=== PATIENT | male | born 1945 | race Hispanic/Latino ===

== ENCOUNTER 2018-04-16 10:28 | Emergency (ER) | payer BC, MEDICARE ==
[~2018-04-16] VITALS: Ht 167.6 cm; Wt 74.8 kg
[~2018-04-16 10:28] MED LIST: KEFLEX500 MG PO; UNKNOWN MEDS; Z.0.AVODART0.5 MG PO; Z.0.LEVOTHROID75 MCG PO; Z.0.LISINOPRIL10 MG; Z.0.RAPAFLO8 MG PO
--- OUTSIDE RECORDS SUMMARY | 2018-04-16 10:34 | XMS REPORT | Clinical Summary ---
Author Author RAUL [facility] Address Unknown Phone Unavailable Care Team Providers Care Daylight Driller Name Role Phone Jose Alfredo Zuniga PCP Allergies Comments Active Allergy Reactions Severity Noted Date seizures Ertapenem Other (See 03/20/2014 Comments) Medications End Date Status Medication Sig Dispensed Refills Start Date Active dutasteride (AVODART) 0.5 Take 0.5 mg 0 mg capsuleIndications: by mouth ESRD (end stage renal daily. disease) ([facility]) Active levothyroxine (SYNTHROID, Take 100 mcg 0 LEVOTHROID) 100 MCG by mouth tabletIndications: ESRD daily. (end stage renal disease) ([facility]) Active metaxalone (SKELAXIN) 800 Take 800 mg 0 MG tabletIndications: by mouth ESRD (end stage renal daily Before disease) ([facility]) dialysis . Active metoprolol (LOPRESSOR) 25 Take 25 mg by 0 MG tabletIndications: mouth 2 (two) ESRD (end stage renal times daily. disease) ([facility]) Active silodosin 8 mg Take 8 mg by 0 CapIndications: ESRD (end mouth daily. stage renal disease) ([facility]) Active cholecalciferol, vitamin Take 2,000 0 D3, 2,000 unit Units by CapIndications: ESRD (end mouth daily. stage renal disease) ([facility]) Active warfarin (COUMADIN) 3 MG Take 3 mg by 0 tabletIndications: ESRD mouth daily. (end stage renal disease) ([facility]) Active Problems Patient Care Coordination Note Dr. Cornell Capellan, Urology, Problem Noted Date ESRD (end stage renal disease) 02/26/2014 Social History Date Tobacco Use Types Packs/Day Years Used Never Smoker Alcohol Use Drinks/Week oz/Week Comments No Sex Assigned at Date Recorded Not on file Industry Job Start Date Occupation Not on file Not on file Not on file Travel End Travel History Travel Start No recent travel history available. Last Filed Vital Signs Not on file Plan of Treatment Health Maintenance Due Date Last Done Comments INFLUENZA VACCINE 01/29/2018 Results Not on fileafter 04/15/2017 Insurance Payer Benefit Subscriber ID Type Phone Address Plan / Group BLUE CROSS/BLUE SHIELD BCBS PPO xxxxxxxxxxxx PPO [phone] [address] [place] [address] CHOICE MEDICARE MEDICARE A xxxxxxxxxx Medicare B Advance Directives For more information, please contact: [facility] [address] [place] [address] Date Inactivated Comments Code Status Date Activated 02/26/2014 5:55 PM Full Code 02/26/2014 7:06 AM This code status was determined by: Patient
--- OUTSIDE RECORDS SUMMARY | 2018-04-16 10:34 | XMS REPORT | Summary of Care ---
Author Author [facility] Organization [facility] Address Unknown Phone Unavailable Encounter HQ Panchor_piero(FIN) [id number] Date(s): 06/29/17 - 06/29/17 [facility] [address] [place] [address]- [phone] Discharge Disposition: Home or Self Care Attending Physician: Lucía Nj MD Referring Physician: Lucía Nj MD Vital Signs No data available for this section Problem List No data available for this section Allergies, Adverse Reactions, Alerts Substance Reaction Severity Status NKDA Active Medications No data available for this section Results No data available for this section Immunizations No data available for this section Procedures Procedure Date Related Diagnosis Body Site Status Arteriovenous fistulization Completed Social History Social History Type Response Smoking Status Never smoker; Exposure to Tobacco Smoke None; Cigarette Smoking Last 365 Days No; Reg Smoking Cessation Counseling No entered on: 05/31/17 Assessment and Plan No data available for this section
--- OUTSIDE RECORDS SUMMARY | 2018-04-16 10:34 | XMS REPORT | Summary of Care ---
Author Author [facility] Organization [facility] Address Unknown Phone Unavailable Encounter HQ Suyapa(NORMA) [id number] Date(s): 05/31/17 - 05/31/17 [facility] [address] [place] [address]- Encounter Diagnosis Urinary tract infection, site not specified (Final) - 06/07/17 Hypertensive chronic kidney disease with stage 5 chronic kidney disease or end s tage renal disease (Final) - End stage renal disease (Final) - Dependence on renal dialysis (Final) - Hypothyroidism, unspecified (Final) - Thrombosis due to vascular prosthetic devices, implants and grafts, initial enco unter (Final) - Acute embolism and thrombosis of right internal jugular vein (Final) - Discharge Disposition: Home or Self Care Attending Physician: Lucía Nj MD Referring Physician: Lucía Nj MD Vital Signs Most recent to 1 oldest [Reference Range]: Height 167.64 cm (05/31/17 1:46 PM) Weight 75 kg (05/31/17 1:46 PM) Body Mass Index 26.69 m2 (05/31/17 1:46 PM) Problem List No data available for this section Allergies, Adverse Reactions, Alerts Substance Reaction Severity Status NKDA Active Medications levothyroxine 112 mcg (0.112 mg) oral tablet 112 microgram=1 tab, PO, Daily, # 30 tab, 0 Refill(s) Start Date: 05/31/17 Status: Ordered nitrofurantoin macrocrystals 50 mg oral capsule (Macrodantin) 50 mg=1 cap, PO, QID, # 28 cap, 0 Refill(s) Start Date: 05/31/17 Stop Date: 06/07/17 Status: Ordered Results No data available for this section Immunizations No data available for this section Procedures Procedure Date Related Diagnosis Body Site Status Arteriovenous fistulization Completed Social History Social History Type Response Smoking Status Never smoker; Exposure to Tobacco Smoke None; Cigarette Smoking Last 365 Days No; Reg Smoking Cessation Counseling No entered on: 05/31/17 Assessment and Plan Extracted from: Title: IR Tunneled Central Line Author: Aman Lujan MD Date: 05/31/17 PROCEDURE REQUESTED: Tunneled central line placement REQUESTING PHYSICIAN: Maryanne Nj MD (Infectious Diseases) HISTORY/INDICATIONS: Chronic urinay tract infection, intermediate term central venous access needed for IV antibiotics. Patient is not a PICC candidate to to end-stage kidney disease on hemodialysis and necessity for peripheral venous preservation. MEDICAL: Hypertension, hypothyroidism, benign prostatic hypertrophy PROCEDURAL HISTORY: Left arm dialysis fistula, right jugular dialysis permcath MEDICATIONS: Nitrofurantoin, levothyroxine ALLERGIES: No known drug allergies PHYSICAL FINDINGS: BP 160/95 P 65 R 22 Alert, oriented, no acute distress SaO2 98% ETCO2 30 Regular rythym IMPRESSION: Chronic urinary tract infection, intermediate term central venous access needed for IV antibiotics. PLAN: Tunneled central line placement with US/fluoroscopy. Discussed procedure and risk with patient and family member. Plan on right side internal jugular access, but may need to go to left internal jugular if right side no longer open due to previous permcath access. Risk of fistula comprimise was discussed, but should be low with jugular access and small catheter size. ASA: III
--- OUTSIDE RECORDS SUMMARY | 2018-04-16 10:34 | XMS REPORT | Continuity of Care Document ---
Author Author [facility] Address Unknown Phone Unavailable Problems Problem Status Onset Date Classification Date Reported Comments Source N39.0 Active 06/28/2017 [facility] Urinary tract infection, site not specified 06/08/2017 09/06/2017 [facility] Hypertensive chronic kidney disease with stage 5 chronic kidney disease or end stage renal disease 09/06/2017 [facility] End stage renal disease 09/06/2017 [facility] Dependence on renal dialysis 09/06/2017 [facility] Hypothyroidism, unspecified 09/06/2017 [facility] Thrombosis due to vascular prosthetic devices, implants and grafts, initial encounter 09/06/2017 [facility] Acute embolism and thrombosis of right internal jugular vein 09/06/2017 [facility] URINARY TRACT INFECTION, SITE NOT SPECIF Active [facility] Medications Medication Details Route Status Patient Instructions Ordering Provider Order Date Source levothyroxine 112 mcg (0.112 mg) oral tablet 112 microgram=1 tab, PO, Daily, # 30 tab, 0 Refill(s) Active 05/31/2017 [facility] nitrofurantoin macrocrystals 50 mg oral capsule (Macrodantin) 50 mg=1 cap, PO, QID, # 28 cap, 0 Refill(s) Active 05/31/2017 [facility] Allergies, Adverse Reactions, Alerts Substance Category Reaction Severity Reaction type Status Date Reported Comments Source Immunizations Immunization Date Given Site Status Last Updated Comments Source Results Order Name Results Value Reference Range Date Interpretation Comments Source CVC insert tunnel w/-w/o port/pump age 5+ yrs VR CVC insert tunnel w/-w/o port/pump age 5+ yrs VR TUNNELED CENTRAL LINE PLACEMENT: HISTORY: Chronic urinary tract infection, intermediate term central venous access needed for IV antibiotic therapy. The patient is not a PICC candidate due to renal disease. PROCEDURE: Preliminary ultrasound of the right internal jugular vein showed it to be occluded related to previous dialysis PermCath access. Preliminary ultrasound of the left internal jugular vein showed it to be patent and compressible. Using sterile maximum barrier Seldinger technique, local anesthetic and ultrasound guidance, the left internal jugular vein above the clavicle was then accessed with a micropuncture set. A 0.035 J-wire was then placed into the superior cava. A subcutaneous tunnel was then created from right subclavicular region to the access site, through which a 6-Arabic Bard dual-lumen catheter was pulled through and its retention cuff placed into the proximal tract. The catheter was then trimmed to an appropriate length using the sizing wire. The micropuncture sheath was then exchanged for a peel-away sheath through which the tunneled catheter was placed, following which the sheath was removed. The catheter was then positioned with its tip at the cavoatrial junction. The ports were then aspirated with good blood return, flushed and capped. A 2-0 nylon [id number] pursestring suture was placed around the catheter exit site. The access site in the neck was closed with Dermabond. The catheter hub was then fastened to the skin with a StatLock device. The patient tolerated the procedure well without immediate complications, and was discharged from [facility] Procedures in stable condition. Spot images of the ultrasound and fluoroscopic guidance were done. The fluoroscopic time was 1.3 minutes (37 mGycm). [id number] 05/31/2017 - - Read by: Aman Lujan MD Dictated Date/time: 05/31/17 16:11 Electronically Signed by: Aman Lujan MD 05/31/17 16:19 FINAL REPORT [facility] Vital Signs Vital Sign Value Date Comments Source Height 167.64 cm 05/31/2017 [facility] BMI Calculated 26.69 05/31/2017 [facility] Weight 75 05/31/2017 [facility] Encounters Location Location Details Encounter Type Encounter Number Reason For Visit Attending Provider ADM Date DC Date Status Source [facility] Outpatient [id number] Lucía Moyerbib 05/31/2017 06/01/[address] [facility] Outpatient [id number] her Moyerbib 06/29/2017 06/30/2017 [facility] Procedures Procedure Code Date Perfomer Comments Source Arteriovenous fistulization [id number] [facility]
[2018-04-16] MEDS ORDERED: MORPHINE SULFATE INJ 4 MG/ML INJ IV PRN (11:15)
[2018-04-16 11:21] LABS: BASOPHILS % 0.2 % (0.0-1.0); EOSINOPHILS # (AUTO) 0.2 (0.0-0.4); EOSINOPHILS % 1.2 % (0.0-6.0); HEMATOCRIT 34.6 % (38.2-49.6); HEMOGLOBIN 11.7 g/dL (14.0-18.0); LYMPHOCYTES # (AUTO) 1.5 (1.0-3.2); LYMPHOCYTES % 9.1 % (18.0-39.1); MEAN CORPUSCULAR HGB CONC 33.8 g/dL (31-35); MEAN CORPUSCULAR VOLUME 91.5 fL (81-99); MONOCYTES # (AUTO) 1.5 (0.2-0.8); MONOCYTES % 9.2 % (4.4-11.3); NEUTROPHILS # (AUTO) 12.9 (2.1-6.9); NEUTROPHILS % 79.7 % (38.7-80.0); PLATELET COUNT 332 x10e3/uL (140-360); RED BLOOD COUNT 3.78 x10e6/uL (4.3-5.7); RED CELL DISTRIBUTION WIDTH 13.2 % (11.7-14.4)
[2018-04-16 11:28] LABS: CLARITY,URINE CLOUDY (CLEAR); COLOR,URINE YELLOW (YELLOW); KETONES,URINE NEGATIVE (NEGATIVE); LEUKOCYTE ESTERASE ,URINE 2+ (NEGATIVE); NITRITE,URINE NEGATIVE (NEGATIVE); PROTEIN,URINE DIPSTICK 1+ (NEGATIVE); URINE UROBILINOGEN 0.2 mg/dL (0.2 - 1)
[2018-04-16 11:29] LABS: BILIRUBIN,URINE NEGATIVE (NEGATIVE)
[2018-04-16 11:40] LABS: BACTERIA,URINE MODERATE /HPF; EPITHELIAL CELLS,URINE FEW /LPF; MUCUS,URINE FEW (RARE)
[2018-04-16 11:44] LABS: ALBUMIN 3.2 g/dL (3.5-5.0); ALBUMIN/GLOBULIN RATIO 0.7 (0.8-2.0); ANION GAP 18.8 mmol/L (8-16); CALCIUM 9.4 mg/dL (8.4-10.2); CREATININE, SERUM 6.19 mg/dL (0.72-1.25); POTASSIUM 3.8 mmol/L (3.5-5.1)
[2018-04-16] MEDS ORDERED: CEFTRIAXONE SOD 1 GM VIAL IV ONE (11:45)
[2018-04-16] MEDS ORDERED: CEFTRIAXONE SOD 1 GM/NS 50 ML 50 ML IV ONE (11:45)
[2018-04-16] MEDS ORDERED: AZITHROMYCIN 250 MG TAB PO ONE (13:30)
[2018-04-16] MEDS ORDERED: METRONIDAZOLE 500 MG TAB PO ONE (13:30)
--- NOTE | 2018-04-16 13:45 | Diagnostic Imaging Report ---
EXAM: Testicular Ultrasound DATE: 04/16/2018 12:00 AM INDICATION: Right testicular pain/swelling COMPARISON: None FINDINGS: Routine testicular ultrasound was performed. Right testicle: 31 x 22 x 27 mm. Flow is present, but slightly increased compared with left testicle. No testicular mass identified. Echotexture of the right testicle is heterogeneous. Left testicle: 40 x 14 x 22 mm. Flow is present. No testicular mass identified. Echotexture is heterogeneous. Right epididymis: 16 x 11 x 12 mm. Small epididymal cysts, largest 3 mm. Left epididymis: 9 x 5 x 5 mm. Small epididymal cysts, largest 4 mm. Other: Small bilateral hydroceles and questionable varicocele on the right. IMPRESSION: 1. Increased flow in the right testicle/epididymis raising question of epididymoorchitis. Clinical/laboratory correlation recommended. 2. Bilateral heterogeneous testicular echotexture with no distinct focal mass. Signed by: Dr. Topher Moore MD on 04/16/2018 1:42 PM
--- NOTE | 2018-04-16 13:46 | Diagnostic Imaging Report ---
EXAM: US TESTICULAR DATE: 04/16/2018 12:00 AM INDICATION: Right testicular pain/swelling. COMPARISON: None FINDINGS: Please see same day testicular Doppler. IMPRESSION: As above. Signed by: Dr. Topher Moore MD on 04/16/2018 1:42 PM
[2018-04-16 14:26] VITALS: BP 135/75
== END 2018-04-16 14:41 | disposition home or self-care (01) ==
LOC: ER 10:28
DX: R30.0 Dysuria (principal); N50.811 Right testicular pain; N45.2 Orchitis; N45.1 Epididymitis; N30.90 Cystitis, unspecified without hematuria; N13.9 Obstructive and reflux uropathy, unspecified
CPT/HCPCS: 36415; 76870; 80053; 81001; 85025; 93976; 99284; J0696; J2270

== ENCOUNTER 2018-06-21 13:47 | Inpatient (IN) | payer MEDICARE ==
[~2018-06-21] VITALS: Ht 162.6 cm; Wt 74.8 kg
--- OUTSIDE RECORDS SUMMARY | 2018-06-21 13:50 | XMS REPORT ---
Author Author [facility] Address Unknown Phone Unavailable Care Team Providers Care Armorer Technician Name Role Phone Alissa LY Unavailable Unavailable Problems This patient has no known problems. Allergies, Adverse Reactions, Alerts This patient has no known allergies or adverse reactions. Medications This patient has no known medications. Results Test Description Test Time Test Comments Text Results Atomic Results Result Comments US TESTICULAR 2018-04-16 13:42:00 [place] [address] Patient Name: MANOJ BLAIR MR #: [id number] : 1945 Age/Sex: 72/M Req #: [id number] [facility] Physician: Ordered by: NOE HAYES DO Report #: [id number] Location: ER Room/Bed: Procedure: [id number] US/US TESTICULAR Exam Date: 04/16/18 Exam Time: 1236 REPORT STATUS: Signed EXAM: US TESTICULAR DATE: 04/16/2018 12:00 AM INDICATION: Right testicular pain/swelling. COMPARISON: None FINDINGS: Please see same day testicular Doppler. IMPRESSION: As above. Signed by: Dr. Topher Moore MD on 04/16/2018 1:42 PM Dictated By: TOPHER MOORE MD 1342 Transcribed By: DARIUS on 04/16/18 1342 COPY TO: NOE HAYES DO US TESTICULAR DOPPLER LTD 2018-04-16 13:39:00 [place] [address] Patient Name: MANOJ BLAIR MR #: [id number] : 1945 Age/Sex: 72/M Req #: [id number] Adm Physician: Ordered by: [facility] Report #: [id number] Location: ER Room/Bed: Procedure: [id number] US/US TESTICULAR DOPPLER LTD Exam Date: 04/16/18 Exam Time: 1236 REPORT STATUS: Signed EXAM: Testicular Ultrasound DATE: 04/16/2018 12:00 AM INDICATION: Right testicular pain/swelling COMPARISON: None FINDINGS: Routine testicular ultrasound was performed. Right testicle: 31 x 22 x 27 mm. Flow is present, but slightly increased compared with left testicle. No testicular mass identified. Echotexture of the right testicle is heterogeneous. Left testicle: 40 x 14 x 22 mm. Flow is present. No testicular mass identified. Echotexture is heterogeneous. Right epididymis: 16 x 11 x 12 mm. Small epididymal cysts, largest 3 mm. Left epididymis: 9 x 5 x 5 mm. Small epididymal cysts, largest 4 mm. Other: Small bilateral hydroceles and questionable varicocele on the right. IMPRESSION: 1. Increased flow in the right testicle/epididymis raising question of epididymoorchitis. Clinical/laboratory correlation recommended. 2. Bilateral heterogeneous testicular echotexture with no distinct focal mass. Signed by: Dr. Topher Moore MD on 04/16/2018 1:42 PM Dictated By: TOPHRE MOORE MD 1342 Transcribed By: DARIUS on 04/16/18 1342 COPY TO: CORW TORO NP
--- OUTSIDE RECORDS SUMMARY | 2018-06-21 13:50 | XMS REPORT | Clinical Summary ---
Author Author RAUL [facility] Address Unknown Phone Unavailable Care Team Providers Care Compliance Tester Name Role Phone Jose Alfredo Zuniga PCP Allergies Comments Active Allergy Reactions Severity Noted Date seizures Ertapenem Other (See 03/20/2014 Comments) Medications End Date Status Medication Sig Dispensed Refills Start Date Active dutasteride (AVODART) 0.5 Take 0.5 mg 0 mg capsuleIndications: by mouth ESRD (end stage renal daily. disease) ([facility]) Active levothyroxine (SYNTHROID, Take 100 mcg 0 LEVOTHROID) 100 MCG by mouth tabletIndications: ESRD daily. (end stage renal disease) ([facility]) Active metaxalone (SKELAXIN) 800 Take 800 mg 0 MG tabletIndications: by mouth ESRD (end stage renal daily Before disease) ([facility]) dialysis . Active metoprolol (LOPRESSOR) 25 Take 25 mg by 0 MG tabletIndications: mouth 2 (two) ESRD (end stage renal times daily. disease) ([facility]) Active silodosin 8 mg Take 8 mg by 0 CapIndications: ESRD (end mouth daily. stage renal disease) ([facility]) Active cholecalciferol, vitamin Take 2,000 0 D3, 2,000 unit Units by CapIndications: ESRD (end mouth daily. stage renal disease) ([facility]) Active warfarin (COUMADIN) 3 MG Take 3 mg by 0 tabletIndications: ESRD mouth daily. (end stage renal disease) ([facility]) Active Problems Patient Care Coordination Note [...] INFLUENZA VACCINE 01/29/2018 Results Not on fileafter 06/20/2017 Insurance Payer Benefit Subscriber ID Type Phone Address Plan / Group BLUE CROSS/BLUE SHIELD BCBS PPO xxxxxxxxxxxx PPO [phone] [address] [place] [address] CHOICE MEDICARE MEDICARE A xxxxxxxxxx Medicare B Advance Directives For more information, please contact: [facility] [address] [place] [address] Date Inactivated Comments Code Status Date Activated 02/26/2014 5:55 PM Full Code 02/26/2014 7:06 AM This code status was determined by: Patient
[2018-06-21 14:55] LABS: BASOPHILS # (AUTO) 0.1 (0.0-0.1); BASOPHILS % 0.9 % (0.0-1.0); EOSINOPHILS # (AUTO) 0.3 (0.0-0.4); EOSINOPHILS % 3.8 % (0.0-6.0); HEMOGLOBIN 13.3 g/dL (14.0-18.0); LYMPHOCYTES # (AUTO) 1.5 (1.0-3.2); LYMPHOCYTES % 21.8 % (18.0-39.1); MEAN CORPUSCULAR HEMOGLOBIN 30.7 pg (28-32); MEAN CORPUSCULAR HGB CONC 34.1 g/dL (31-35); MEAN CORPUSCULAR VOLUME 90.1 fL (81-99); MONOCYTES # (AUTO) 0.6 (0.2-0.8); MONOCYTES % 8.4 % (4.4-11.3); NEUTROPHILS # (AUTO) 4.6 (2.1-6.9); PLATELET COUNT 313 x10e3/uL (140-360); RED BLOOD COUNT 4.33 x10e6/uL (4.3-5.7); RED CELL DISTRIBUTION WIDTH 13.6 % (11.7-14.4)
[2018-06-21 15:11] LABS: BILIRUBIN,URINE NEGATIVE (NEGATIVE); CLARITY,URINE SL CLOUDY (CLEAR); COLOR,URINE STRAW (YELLOW); KETONES,URINE NEGATIVE (NEGATIVE); LEUKOCYTE ESTERASE ,URINE 1+ (NEGATIVE); NITRITE,URINE NEGATIVE (NEGATIVE); PROTEIN,URINE DIPSTICK 1+ (NEGATIVE); URINE UROBILINOGEN 0.2 mg/dL (0.2 - 1)
[2018-06-21 15:22] LABS: BACTERIA,URINE MANY /HPF; RBC,URINE 0-5 /HPF (0-5)
[2018-06-21 15:22] LABS: ALBUMIN 4.1 g/dL (3.5-5.0); ALBUMIN/GLOBULIN RATIO 1.2 (0.8-2.0); ANION GAP 15.7 mmol/L (8-16); CALCIUM 9.1 mg/dL (8.4-10.2); CREATININE, SERUM 5.06 mg/dL (0.72-1.25); POTASSIUM 4.7 mmol/L (3.5-5.1)
[2018-06-21] MEDS ORDERED: MEROPENEM 1GM 100 ML IV SCH (17:30)
--- OUTSIDE RECORDS SUMMARY | 2018-06-21 17:44 | XMS REPORT | Clinical Summary ---
Author Author RAUL [facility] Address Unknown Phone Unavailable Care Team Providers Care Bunch Maker Name Role Phone Jose Alfredo Zuniga PCP Allergies Comments Active Allergy Reactions Severity Noted Date seizures Ertapenem Other (See 03/20/2014 Comments) Medications End Date Status Medication Sig Dispensed Refills Start Date Active dutasteride (AVODART) 0.5 Take 0.5 mg 0 mg capsuleIndications: by mouth ESRD (end stage renal daily. disease) ([facility]) Active levothyroxine (SYNTHROID, Take 100 mcg 0 LEVOTHROID) 100 MCG by mouth tabletIndications: ESRD daily. (end stage renal disease) ([facility]) Active metaxalone (SKELAXIN) 800 Take 800 mg 0 MG tabletIndications: by mouth ESRD (end stage renal daily Before disease) ([facility]) dialysis . Active metoprolol (LOPRESSOR) 25 Take 25 mg by 0 MG tabletIndications: mouth 2 (two) ESRD (end stage renal times daily. disease) ([facility]) Active silodosin 8 mg Take 8 mg by 0 CapIndications: ESRD (end mouth daily. stage renal disease) ([facility]) Active cholecalciferol, vitamin Take 2,000 0 D3, 2,000 unit Units by CapIndications: ESRD (end mouth daily. stage renal disease) ([facility]) Active warfarin (COUMADIN) 3 MG Take 3 mg by 0 tabletIndications: ESRD mouth daily. (end stage renal disease) ([facility]) Active Problems Patient Care Coordination Note Dr. [...] BLUE CROSS/BLUE SHIELD BCBS PPO xxxxxxxxxxxx PPO [phone] [address] [place] [address] CHOICE MEDICARE MEDICARE A xxxxxxxxxx Medicare B Advance Directives For more information, please contact: [facility] [address] [place] [address] Date Inactivated Comments Code Status Date Activated 02/26/2014 5:55 PM Full Code 02/26/2014 7:06 AM This code status was determined by: Patient
[2018-06-21] MEDS: MEROPENEM 1GM 100 ML IV SCH (18:12)
--- NOTE | 2018-06-21 19:18 | NUR ---
REPORT GIVEN TO OLINDA WRIGHT DELINQUENT TAX COLLECTOR ASSISTANT NURSE
[2018-06-21] MEDS ORDERED: LEVOTHYROXINE100 MCG PO (20:35)
[2018-06-21] MEDS ORDERED: CIPROFLOXACIN250 MG PO (20:38)
[2018-06-21 20:47] VITALS: BP 170/78
--- NOTE | 2018-06-21 21:07 | NUR ---
patient came to the unit with wheelchair, awake alert oriented, no distress noted. per report patient does self cath and as soon as he got to the room he did self cath in the bathroom. he ambulates with minimum to no need assistance. daughter on bed side. will continue to monitor.
[2018-06-22] VITALS (7 sets, daily range): BP systolic 125–150; BP diastolic 61–83
[2018-06-22] MEDS: MEROPENEM 1GM 100 ML IV SCH ×2 (04:59→16:51)
--- NOTE | 2018-06-22 07:20 | NUR ---
HANDOFF REPORT AND WALKING ROUNDS WITH OUTGOING TRANSITIONS RN CARE COORDINATOR NURSE. NAD OBSERVED OR REPORTED.
[2018-06-22 07:47] LABS: BASOPHILS # (AUTO) 0.1 (0.0-0.1); BASOPHILS % 0.8 % (0.0-1.0); EOSINOPHILS # (AUTO) 0.4 (0.0-0.4); EOSINOPHILS % 5.1 % (0.0-6.0); HEMATOCRIT 34.9 % (38.2-49.6); HEMOGLOBIN 11.8 g/dL (14.0-18.0); LYMPHOCYTES # (AUTO) 1.5 (1.0-3.2); LYMPHOCYTES % 21.6 % (18.0-39.1); MEAN CORPUSCULAR HEMOGLOBIN 30.4 pg (28-32); MEAN CORPUSCULAR HGB CONC 33.8 g/dL (31-35); MEAN CORPUSCULAR VOLUME 89.9 fL (81-99); MONOCYTES # (AUTO) 0.7 (0.2-0.8); MONOCYTES % 9.6 % (4.4-11.3); NEUTROPHILS # (AUTO) 4.4 (2.1-6.9); NEUTROPHILS % 62.6 % (38.7-80.0); PLATELET COUNT 266 x10e3/uL (140-360); RED BLOOD COUNT 3.88 x10e6/uL (4.3-5.7); RED CELL DISTRIBUTION WIDTH 13.4 % (11.7-14.4)
[2018-06-22 08:04] LABS: ALBUMIN 3.4 g/dL (3.5-5.0); ANION GAP 15.5 mmol/L (8-16); CALCIUM 8.8 mg/dL (8.4-10.2); CREATININE, SERUM 5.67 mg/dL (0.72-1.25); POTASSIUM 4.5 mmol/L (3.5-5.1)
[2018-06-22] MEDS: SEVELAMER CARBONATE 800 MG TAB PO SCH ×2 (11:41→16:51)
--- NOTE | 2018-06-22 13:35 | NUR ---
CASE MANAGEMENT ASSESSMENT Senior Mechanical Project Manager to bedside to discuss plan of care with patient/family. CM/SW role and care transitions discussed. Anticipated discharge plan discussed along with duration of care. CM/SW discussed patients right to make decisions in care. CM/SW work hours given. Patient lives: with and daughter Admit/Transfer: thru ED Hospital/ER visits since last admit: was in ER 3 weeks ago POA/Emergency contact: Veronica Gutirerez [phone] Current/Previous Home Health: none PCP/Follow-up Care: Dr. Zuniga - advised pt to follow up with MD within 7 days of discharge Current/Previous DME: none Medications (referring to index hospitalization or the first time you were in the hospital) a. Were changes made in your medications when you were in the hospital 3 weeks ago? yes, antibiotics b. Did you understand the changes? yes c. Were you able to obtain your new medications right away? yes d. Were you able to take your medications like the doctor wanted you to? yes e. Did the hospital give you an accurate, easy to understand list of medications when you left? yes Scale of 1-10 how comfortable does patient feel with disease management in outpatient settin Other Services: HD at [facility] MWF at 4pm Employment Status: employed at [employer] Areas of Concerns: UTI Referral Needs: none Education Needs: medical management IMM/BARAHONA given and signed (if applicable): IMM; Guyanese copy provided to pt. Goal for discharge: Home CM/SW left business card at the bedside with contact information. Name and number was also written on the patients whiteboard. Patient verbalized understanding of discussion. CM will follow-up with ongoing discharge and transition of care needs.
--- NOTE | 2018-06-22 19:00 | NUR ---
RECEIVED PT RESTING IN BED.NO S/S OF DISTRESS NOTED.RESPIRATIONS EVEN/NON LABORED.PT GOING TO GET DIALYSIS [place] TONIGHT.INSTRUCTED PT TO CALL FOR ASSISTANCE NEEDED,PT VERBALIZED UNDERSTANDING.CALL LIGHT WITHIN EASY REACH.
--- NOTE | 2018-06-22 19:50 | NUR ---
PT STARTED DIALYSIS AT THIS TIME.DIALYSIS NURSE AT THE BEDSIDE.NO S/S OF DISTRESS NOTED.RESPIRATIONS EVEN/NON LABORED.CALL LIGHT WITHIN EASY REACH.
[2018-06-22] MEDS ORDERED: SODIUM CHLORIDE 0.9% 1000ML 1,000 ML ONE (19:54)
[2018-06-23] VITALS (8 sets, daily range): BP systolic 110–145; BP diastolic 56–78
--- NOTE | 2018-06-23 03:10 | Consultation ---
DATE OF CONSULTATION: 06/22/2018 HISTORY OF PRESENT ILLNESS: This is a 72-year-old gentleman with underlying history of BPH, hypothyroidism, hypertension, admitted with urinary tract infection, Renal consulted for management of kidney failure. He also carries a history of congestive heart failure in the past. He is currently awake, alert, ambulatory. His is also admitted in the same hospital. ALLERGIES: HE HAS NO DRUG ALLERGIES. CURRENT MEDICATIONS: The patient is on meropenem 1 g IV q.12. Cultures have been sent. Urine is growing gram-negative bacilli. SOCIAL HISTORY: He does not smoke or drink. LABORATORY DATA: Lab show white count 7, hemoglobin 11.8, potassium 4.5, and creatinine 5.6. PHYSICAL EXAMINATION: GENERAL: Awake, alert, lying supine, in no apparent distress. VITAL SIGNS: Blood pressure 134/79 and pulse rate 80. HEAD AND NECK: Cornea clear. Oral mucosa moist. Neck veins flat. No JVD. LUNGS: Occasional rales, bibasilar. HEART: S1 and S2, audible. ABDOMEN: Otherwise, soft and nontender. IMPRESSION AND PLAN: End-stage renal disease, complicated urinary tract infection, hypertension, multiple comorbidities, mild fluid overload. Plan arranging for dialysis. Start erythropoietin, phosphorus binders, fluid restriction, renal diet. Discussed with RN. Please see orders. MD PEARL Gaines/YANN /[id number]
[2018-06-23] MEDS: MEROPENEM 1GM 100 ML IV SCH ×2 (05:45→18:40)
--- NOTE | 2018-06-23 07:51 | Consultation ---
DATE OF CONSULTATION: Consultation REASON FOR CONSULTATION: UTI with multidrug resistant. HISTORY OF PRESENT ILLNESS: This patient is a very pleasant 72-year-old male, who has a history of recurrent UTI. The patient has a history of end-stage renal disease, on hemodialysis. The patient comes in with urgency and frequency. A urine culture, which was done as an outpatient, showed that he had a multidrug-resistant pathogen. The patient has taken several oral antibiotics as an outpatient without any improvement. The patient failed oral antibiotics, so he was sent to the emergency room to be admitted. I have discussed the case with the ER physician. The patient is going to be admitted on meropenem. PAST MEDICAL HISTORY: End-stage renal disease, on hemodialysis. PAST SURGICAL HISTORY: IV access for dialysis. ALLERGIES: NKA. SOCIAL HISTORY: There is no history of smoking, drug abuse, or alcohol abuse. FAMILY HISTORY: Otherwise unremarkable. REVIEW OF SYSTEMS: HEENT: Negative. PULMONARY: Negative. CARDIAC: Negative. : As above. GI: Negative. PHYSICAL EXAMINATION: GENERAL: He is currently alert and oriented, does not seem to be in acute distress. VITAL SIGNS: Stable. Currently afebrile. HEENT: Normocephalic. No pallor or icterus. NECK: Supple. CHEST: Clear. HEART: S1 and S2 normal. ABDOMEN: Soft. Bowel sounds present. No tenderness. EXTREMITIES: No edema. LABORATORY DATA: Reviewed. Chart reviewed. IMPRESSION: 1. Urinary tract infection, probably cystitis with multidrug resistance, failed oral antibiotic. We will put him on meropenem 500 mg IV q.24 hours, plan for 3 days. Recheck urine culture. 2. End-stage renal disease, on hemodialysis. We will follow with you. MD LATOSHA Corcoran/YANN /[id number]
[2018-06-23 07:55] LABS: BASOPHILS % 0.5 % (0.0-1.0); EOSINOPHILS # (AUTO) 0.3 (0.0-0.4); EOSINOPHILS % 4.3 % (0.0-6.0); HEMATOCRIT 39.9 % (38.2-49.6); HEMOGLOBIN 13.8 g/dL (14.0-18.0); LYMPHOCYTES # (AUTO) 1.4 (1.0-3.2); LYMPHOCYTES % 18.2 % (18.0-39.1); MEAN CORPUSCULAR HEMOGLOBIN 30.7 pg (28-32); MEAN CORPUSCULAR HGB CONC 34.6 g/dL (31-35); MEAN CORPUSCULAR VOLUME 88.9 fL (81-99); MONOCYTES # (AUTO) 0.8 (0.2-0.8); NEUTROPHILS # (AUTO) 5.3 (2.1-6.9); NEUTROPHILS % 66.6 % (38.7-80.0); PLATELET COUNT 273 x10e3/uL (140-360); RED BLOOD COUNT 4.49 x10e6/uL (4.3-5.7); RED CELL DISTRIBUTION WIDTH 13.2 % (11.7-14.4)
[2018-06-23 08:11] LABS: ANION GAP 15.4 mmol/L (8-16); CALCIUM 9.7 mg/dL (8.4-10.2); CREATININE, SERUM 4.44 mg/dL (0.72-1.25); POTASSIUM 4.4 mmol/L (3.5-5.1)
--- NOTE | 2018-06-23 08:14 | NUR ---
CRITICAL RESULT REC'D FROM MICRO; PT RESULTED WITH ESBL-MDRO OF URINE. PT PLACED ON CONTACT ISOLATION.
[2018-06-23] MEDS: SEVELAMER CARBONATE 800 MG TAB PO SCH ×3 (08:30→17:15)
[2018-06-24] VITALS (7 sets, daily range): BP systolic 120–190; BP diastolic 61–84
[2018-06-24] MEDS: MEROPENEM 1GM 100 ML IV SCH ×2 (05:50→18:06)
[2018-06-24] MEDS: SEVELAMER CARBONATE 800 MG TAB PO SCH ×3 (09:00→17:30)
[2018-06-24 11:43] LABS: BASOPHILS # (AUTO) 0.1 (0.0-0.1); BASOPHILS % 0.7 % (0.0-1.0); EOSINOPHILS # (AUTO) 0.3 (0.0-0.4); EOSINOPHILS % 3.5 % (0.0-6.0); HEMATOCRIT 38.9 % (38.2-49.6); HEMOGLOBIN 13.2 g/dL (14.0-18.0); LYMPHOCYTES # (AUTO) 1.7 (1.0-3.2); LYMPHOCYTES % 20.8 % (18.0-39.1); MEAN CORPUSCULAR HEMOGLOBIN 30.7 pg (28-32); MEAN CORPUSCULAR HGB CONC 33.9 g/dL (31-35); MEAN CORPUSCULAR VOLUME 90.5 fL (81-99); MONOCYTES # (AUTO) 0.7 (0.2-0.8); MONOCYTES % 8.7 % (4.4-11.3); NEUTROPHILS # (AUTO) 5.3 (2.1-6.9); NEUTROPHILS % 65.9 % (38.7-80.0); PLATELET COUNT 286 x10e3/uL (140-360); RED CELL DISTRIBUTION WIDTH 13.4 % (11.7-14.4)
[2018-06-24 12:04] LABS: ALBUMIN 3.9 g/dL (3.5-5.0); ANION GAP 16.5 mmol/L (8-16); CALCIUM 9.6 mg/dL (8.4-10.2); CREATININE, SERUM 5.56 mg/dL (0.72-1.25); POTASSIUM 4.5 mmol/L (3.5-5.1)
[2018-06-25] VITALS (7 sets, daily range): BP systolic 110–172; BP diastolic 61–83
[2018-06-25 05:34] LABS: BASOPHILS % 0.6 % (0.0-1.0); EOSINOPHILS # (AUTO) 0.4 (0.0-0.4); EOSINOPHILS % 6.1 % (0.0-6.0); HEMATOCRIT 34.3 % (38.2-49.6); HEMOGLOBIN 11.7 g/dL (14.0-18.0); LYMPHOCYTES # (AUTO) 1.5 (1.0-3.2); LYMPHOCYTES % 21.5 % (18.0-39.1); MEAN CORPUSCULAR HEMOGLOBIN 30.5 pg (28-32); MEAN CORPUSCULAR HGB CONC 34.1 g/dL (31-35); MEAN CORPUSCULAR VOLUME 89.6 fL (81-99); MONOCYTES # (AUTO) 0.7 (0.2-0.8); MONOCYTES % 10.8 % (4.4-11.3); NEUTROPHILS # (AUTO) 4.2 (2.1-6.9); NEUTROPHILS % 60.7 % (38.7-80.0); PLATELET COUNT 262 x10e3/uL (140-360); RED BLOOD COUNT 3.83 x10e6/uL (4.3-5.7); RED CELL DISTRIBUTION WIDTH 13.4 % (11.7-14.4)
[2018-06-25] MEDS: MEROPENEM 1GM 100 ML IV SCH ×2 (05:45→17:51)
[2018-06-25 06:04] LABS: ANION GAP 14.4 mmol/L (8-16); CALCIUM 8.9 mg/dL (8.4-10.2); CREATININE, SERUM 5.44 mg/dL (0.72-1.25); POTASSIUM 4.4 mmol/L (3.5-5.1)
--- NOTE | 2018-06-25 07:21 | NUR ---
REPORT GIVEN TO ONCOMING NURSE.WALKING ROUNDS MADE.PT RESTING IN BED WITH NO S/S OF DISTRESS.
[2018-06-25] MEDS ORDERED: SODIUM CHLORIDE 0.9% 1000ML 2,000 ML ONE (07:41)
[2018-06-25] MEDS: SEVELAMER CARBONATE 800 MG TAB PO SCH ×3 (08:55→17:51)
--- NOTE | 2018-06-25 10:20 | NUR ---
IMM letter delivered and explained to pt. Signed copy placed in chart. Prydeinig copy to pt.
--- NOTE | 2018-06-25 13:24 | NUR ---
Received order for [facility] eval. Spoke to pt and family at bedside. Pt is agreeable and signed choice letter for [facility]. Choice letter placed in chart. Copy to pt. Addendum: 06/25/18 at 1337 by Sheree Velasquez CM Notifpola Mistry with [facility].
--- NOTE | 2018-06-25 16:13 | NUR ---
Fidelia came to [facility]. Said should have a bed today. Will call MOT to nurses station. MOT form initiated and placed with packet at nurses station.
--- NOTE | 2018-06-25 19:25 | NUR ---
Patient received sitting up in bed. Family at bedside. AAO x 3. Patient had no c/o pain. No signs of respiratory distress. Call light within reach.
--- NOTE | 2018-06-25 19:50 | NUR ---
Transfer report call to [facility] to [facility]. Patient would be residing in Room 304.
--- NOTE | 2018-06-25 21:40 | NUR ---
Patient transported via EMS to [facility]. Vital signs WNL. Patient in stable condition accompanied by family members.
== END 2018-06-25 21:29 | DRG 689 ==
LOC: ER 13:47 → ERHOLD 17:33 → MED/SURG2 20:53
PROC: 5A1D70Z Performance of Urinary Filtration, Intermittent, Less than 6 Hours Per Day (ICD-10-PCS; principal; 2018-06-22)
PROC: 5A1D70Z Performance of Urinary Filtration, Intermittent, Less than 6 Hours Per Day (ICD-10-PCS; 2018-06-25)
DX: N30.90 Cystitis, unspecified without hematuria (principal); N18.6 End stage renal disease; I13.2 Hypertensive heart and chronic kidney disease with heart failure and with stage 5 chronic kidney disease, or end stage renal disease; I50.30 Unspecified diastolic (congestive) heart failure; Z99.2 Dependence on renal dialysis; E78.5 Hyperlipidemia, unspecified; N40.1 Benign prostatic hyperplasia with lower urinary tract symptoms; R53.81 Other malaise; E03.9 Hypothyroidism, unspecified; Z87.440 Personal history of urinary (tract) infections; R35.0 Frequency of micturition; R39.15 Urgency of urination; E87.70 Fluid overload, unspecified; B96.20 Unspecified Escherichia coli [E. coli] as the cause of diseases classified elsewhere; Z16.12 Extended spectrum beta lactamase (ESBL) resistance
CPT/HCPCS: 36415; 80048; 80053; 81001; 82948; 83605; 85025; 86704; 86705; 86706; 87040; 87086; 87186; 87340; 90962; 99284; J7030

== ENCOUNTER 2021-02-04 09:58 | Emergency (ER) | payer MEDICARE ==
[~2021-02-04] VITALS: Ht 162.6 cm; Wt 74.8 kg
[~2021-02-04 09:58] MED LIST changes: +CIPROFLOXACIN250 MG PO; +LEVOTHYROXINE100 MCG PO
== END 2021-02-04 11:06 | disposition home or self-care (01) ==
LOC: ER 10:18
DX: R79.1 Abnormal coagulation profile (principal); N18.6 End stage renal disease; Z99.2 Dependence on renal dialysis; E78.5 Hyperlipidemia, unspecified
CPT/HCPCS: 99282